=== PATIENT | female | born 1970 | race Caucasian/White ===

== ENCOUNTER 2016-04-24 08:38 | Emergency (ER) | payer OTHER ==
[~2016-04-24] VITALS: Ht 157.5 cm; Wt 45.8 kg
[~2016-04-24 08:38] MED LIST: DULO60CA45 PO; TRAZ-144 PO
[2016-04-24 08:48] VITALS: BP 129/71
== END 2016-04-24 09:34 | disposition home or self-care (01) ==
LOC: ER 08:40
DX: H10.9 Unspecified conjunctivitis (principal); F32.9 Major depressive disorder, single episode, unspecified
CPT/HCPCS: 99283; A4606; Z7610

== ENCOUNTER 2016-11-13 12:36 | Emergency (ER) | payer OTHER ==
[~2016-11-13] VITALS: Ht 152.4 cm; Wt 49.4 kg
--- NOTE | 2016-11-13 12:47 | NUR ---
PT AMBULATORY TO ER BED 09. C/O GROIN AREA PAIN W DYSURIA AND FREQUENCY THAT STARTED YESTERDAY. HX OF FREQUENT UTI. ASKING FOR ANTIBIOTICS. AWAITING MD FLETCHER.
[2016-11-13 14:32] LABS: PREGNANCY TEST URINE QUAL NEG (NEGATIVE)
[2016-11-13 14:37] LABS: APPEARANCE,URINE CLEAR (CLEAR); BILIRUBIN,URINE NEGATIVE (NEGATIVE); BLOOD, URINE NEGATIVE Ery/uL (NEGATIVE); COLOR,URINE YELLOW (YELLOW); KETONES,URINE NEGATIVE (NEGATIVE); LEUKOCYTE ESTERASE ,URINE NEGATIVE (NEGATIVE); NITRITE, URINE NEGATIVE (NEGATIVE); PH,URINE 6.5 (5.0-8.0); PROTEIN,URINE NEGATIVE (NEGATIVE); UGLUCOSE NEGATIVE (NEGATIVE); UROBILINOGEN,URINE 0.2 EU/dL (0.2)
[2016-11-13] MEDS ORDERED: IBUPROFEN 600 MG TABLET PO ONE ×2 (14:43→15:00)
--- NOTE | 2016-11-13 16:07 | NUR ---
Patient discharged to home in stable condition. Written and verbal after care instructions given. Patient verbalizes understanding of instruction.
[2016-11-13 16:10] VITALS: BP 115/63
== END 2016-11-13 16:10 | disposition home or self-care (01) ==
LOC: ER 13:08
DX: R10.2 Pelvic and perineal pain (principal); F32.9 Major depressive disorder, single episode, unspecified; F12.10 Cannabis abuse, uncomplicated
CPT/HCPCS: 81001; 84703; 87210; 99284; A4606; Z7610; 81000-TC